=== PATIENT | female | born 1960 | race Caucasian/White ===

== ENCOUNTER → 2020-09-07 13:54 | Outpatient (BNVA) | payer OTHER, SELFPAY | PROVIDERS: PCP Family Medicine; Visit Provider Hospitalist | DX: Z76.89 Persons encountering health services in other specified circumstances (principal) ==

== ENCOUNTER → 2020-12-27 13:26 | Outpatient (BNVA) | payer OTHER, SELFPAY | PROVIDERS: PCP Family Medicine; Visit Provider Hospitalist ==

== ENCOUNTER 2020-12-28 06:25 | Outpatient (REF) | payer OTHER, SELFPAY ==
--- NOTE | ~2020-12-28 | XR_ITS ---
EXAMINATION: XR CHEST CLINICAL INFORMATION: Severe persistent asthma. COMPARISON: 06/11/2020 TECHNIQUE: 2 views of the chest were obtained. FINDINGS: The cardiomediastinal silhouette is within normal limits. The lungs are well expanded. There is no focal consolidation, edema, or effusion. Stable borderline prominence of the left main pulmonary artery. No pneumothorax. No acute osseous abnormality. XR/XR chest 2V IMPRESSION: No significant interval change. No acute process.
== END 2020-12-28 06:26 | disposition home or self-care (01) ==
LOC: HO.XRAY 06:25
PROVIDERS: PCP Family Medicine; Visit Provider Hospitalist
DX: J45.50 Severe persistent asthma, uncomplicated (principal); J67.9 Hypersensitivity pneumonitis due to unspecified organic dust
CPT/HCPCS: 71046

== ENCOUNTER 2020-12-30 06:12 | Outpatient (REF) | payer OTHER, SELFPAY ==
[2020-12-30 07:37] LABS: MANUAL DIFF FLAG NO
[2020-12-30 07:41] LABS: Basophils Absolute Auto 0.1 X10*3/uL (0.0-0.2); Eosinophils Absolute Auto 0.4 X10*3/uL (0.0-0.4); Eosinophils Percent Auto 8.8 % (0-4); Hematocrit 38.7 % (37-47); Hemoglobin 12.6 g/dl (12.0-16.0); Imm Gran Abs Auto 0.01 X10*3/uL (0.00-0.03); Imm Gran Pct Auto 0.2 % (0.0-0.4); Lymphocytes Percent Auto 40.7 % (20-40); Mean Corpuscular HGB Conc 32.6 g/dl (31.0-35.0); Mean Corpuscular Hemoglobin 29.3 pg (27.0-33.0); Mean Platelet Volume 11.3 fL (9.4-12.3); Monocytes Absolute Auto 0.4 X10*3/uL (0.1-1.2); Monocytes Percent Auto 7.2 % (2-11); Neutrophils Absolute Auto 2.1 X10*3/uL (2.0-8.3); Neutrophils Percent Auto 42.1 % (45-73); Platelet Count 209 X10*3/uL (160-400); Red Cell Distribution Width 12.9 % (11.0-16.0); White Blood Count 4.9 X10*3/uL (4.8-10.8)
[2020-12-30 08:14] LABS: Anion Gap 13 (12-20); Blood Urea Nitrogen 17 mg/dL (9-16); Calcium 9.5 mg/dL (8.4-10.2); Carbon Dioxide 26 mmol/L (22-29); Chloride 108 mmol/L (96-108); Estimated Glomerular Filt Rate > 60; Glucose Random 93 mg/dL (60-115); Potassium 4.5 mmol/L (3.3-5.1); Sodium 142 mmol/L (135-145)
[2020-12-30 08:23] LABS: Erythrocyte Sedimentation Rate 56 MM/HR (0-20)
[2020-12-31 03:46] LABS: SARS COV2 IgG Negative (Negative)
[2020-12-31 11:16] LABS: Immunoglobulin E 22 kU/L (<OR=114)
[2021-01-06 14:01] LABS: Asperg fumigatus Precip Abs NEGATIVE (NEGATIVE); Micropoly faeni Abs NEGATIVE (NEGATIVE); Pigeon serum Abs NEGATIVE (NEGATIVE); Saccharo pora viridis Abs NEGATIVE (NEGATIVE); Thermo candidus Abs NEGATIVE (NEGATIVE); Thermoa vulgaris #1 NEGATIVE (NEGATIVE)
== END 2020-12-30 06:13 | disposition home or self-care (01) ==
LOC: HO.LAB 06:12
PROVIDERS: PCP Family Medicine; Visit Provider Hospitalist
DX: R91.8 Other nonspecific abnormal finding of lung field (principal); J45.50 Severe persistent asthma, uncomplicated; J67.9 Hypersensitivity pneumonitis due to unspecified organic dust; Z01.84 Encounter for antibody response examination
CPT/HCPCS: 36415; 80048; 82785; 85025; 85652; 86331; 86606; 86609; 86769

== ENCOUNTER → 2021-02-07 10:55 | Outpatient (BNVA) | payer OTHER, SELFPAY | PROVIDERS: PCP Family Medicine; Visit Provider Hospitalist ==

== ENCOUNTER 2021-02-11 08:56 | Outpatient (REF) | payer OTHER, SELFPAY | END 2021-02-11 08:57 | disposition home or self-care (01) | LOC: HO.MDS 08:56 | PROVIDERS: PCP Family Medicine; Visit Provider Hospitalist | DX: J45.50 Severe persistent asthma, uncomplicated (principal) | CPT/HCPCS: 96372; J0517 ==

== ENCOUNTER 2021-03-11 09:26 | Outpatient (REF) | payer OTHER, SELFPAY | END 2021-03-11 09:27 | disposition home or self-care (01) | LOC: HO.MDS 09:26 | PROVIDERS: PCP Family Medicine; Visit Provider Hospitalist | DX: J45.50 Severe persistent asthma, uncomplicated (principal) | CPT/HCPCS: 96372; J0517 ==

== ENCOUNTER → 2021-04-07 10:35 | Outpatient (BNVA) | payer OTHER, SELFPAY | PROVIDERS: PCP Family Medicine; Visit Provider Hospitalist ==

== ENCOUNTER 2021-04-08 08:43 | Outpatient (REF) | payer OTHER, SELFPAY | END 2021-04-08 08:44 | disposition home or self-care (01) | LOC: HO.MDS 08:43 | PROVIDERS: PCP Family Medicine; Visit Provider Hospitalist | DX: J45.50 Severe persistent asthma, uncomplicated (principal) | CPT/HCPCS: 96372; J0517 ==

== ENCOUNTER 2021-05-06 08:04 | Outpatient (REF) | payer OTHER, SELFPAY | END 2021-05-06 08:05 | disposition home or self-care (01) | LOC: HO.MDS 08:04 | PROVIDERS: PCP Family Medicine; Visit Provider Hospitalist | DX: J45.50 Severe persistent asthma, uncomplicated (principal) | CPT/HCPCS: 96372; J0517 ==

== ENCOUNTER 2021-07-01 08:35 | Outpatient (REF) | payer OTHER, SELFPAY | END 2021-07-01 08:36 | disposition home or self-care (01) | LOC: HO.MDS 08:35 | PROVIDERS: PCP Family Medicine; Visit Provider Hospitalist | DX: J45.50 Severe persistent asthma, uncomplicated (principal) | CPT/HCPCS: 96372; J0517 ==

== ENCOUNTER → 2021-08-02 12:50 | Outpatient (BNVA) | payer OTHER, SELFPAY | PROVIDERS: PCP Family Medicine; Visit Provider Hospitalist | DX: J67.9 Hypersensitivity pneumonitis due to unspecified organic dust (principal); J45.50 Severe persistent asthma, uncomplicated; J45.51 Severe persistent asthma with (acute) exacerbation | CPT/HCPCS: J2930 ==

== ENCOUNTER 2021-08-26 08:00 | Outpatient (REF) | payer OTHER, SELFPAY | END 2021-08-26 08:01 | disposition home or self-care (01) | LOC: HO.MDS 08:00 | PROVIDERS: PCP Family Medicine; Visit Provider Hospitalist | DX: J45.50 Severe persistent asthma, uncomplicated (principal) | CPT/HCPCS: 96372; J0517 ==

== ENCOUNTER 2021-09-23 07:59 | Outpatient (REF) | payer OTHER, SELFPAY | END 2021-09-23 08:00 | disposition home or self-care (01) | LOC: HO.MDS 07:59 | PROVIDERS: PCP Family Medicine; Visit Provider Hospitalist | DX: J45.50 Severe persistent asthma, uncomplicated (principal); G35 Multiple sclerosis | CPT/HCPCS: 96372; J0517 ==

== ENCOUNTER → 2021-10-06 11:05 | Outpatient (BNVA) | payer OTHER, SELFPAY | PROVIDERS: PCP Family Medicine; Visit Provider Hospitalist | DX: J45.50 Severe persistent asthma, uncomplicated (principal); J44.9 Chronic obstructive pulmonary disease, unspecified; J67.9 Hypersensitivity pneumonitis due to unspecified organic dust | CPT/HCPCS: 90471; 90686 ==

== ENCOUNTER 2022-10-03 15:07 | Outpatient (REF) | payer OTHER, SELFPAY ==
[2022-10-03 15:24] LABS: MANUAL DIFF FLAG NO
[2022-10-03 16:04] LABS: Basophils Absolute Auto 0.1 X10*3/uL (0.0-0.2); Basophils Percent Auto 1.2 % (0-2); Eosinophils Absolute Auto 0.3 X10*3/uL (0.0-0.4); Eosinophils Percent Auto 5.7 % (0-4); Hematocrit 38.9 % (37.0-47.0); Hemoglobin 12.6 g/dl (12.0-16.0); Imm Gran Abs Auto 0.01 X10*3/uL (0.00-0.03); Imm Gran Pct Auto 0.2 % (0.0-0.4); Lymphocytes Absolute Auto 2.2 X10*3/uL (1.2-4.9); Lymphocytes Percent Auto 44.2 % (20-40); Mean Corpuscular HGB Conc 32.4 g/dl (31.0-35.0); Mean Corpuscular Hemoglobin 28.6 pg (27.0-33.0); Mean Corpuscular Volume 88.4 fL (80.0-98.0); Monocytes Absolute Auto 0.4 X10*3/uL (0.1-1.2); Monocytes Percent Auto 8.5 % (2-11); Neutrophils Percent Auto 40.2 % (45-73); Platelet Count 265 X10*3/uL (160-400); White Blood Count 5.1 X10*3/uL (4.8-10.8)
[2022-10-03 16:27] LABS: Alanine Aminotransferase 14 U/L (0-31); Albumin Level 4.3 g/dL (3.5-5.0); Alkaline Phosphatase 117 U/L (39-117); Anion Gap 12 (12-20); Aspartate Amino Transferase 20 U/L (5-31); Bilirubin Total 0.5 mg/dL (0.0-1.0); Blood Urea Nitrogen 16 mg/dL (9-16); Carbon Dioxide 27 mmol/L (22-29); Chloride 104 mmol/L (96-108); Estimated Glomerular Filt Rate > 60; Glucose Random 94 mg/dL (60-115); Potassium 4.4 mmol/L (3.3-5.1); Sodium 139 mmol/L (135-145); Total Protein 7.6 g/dL (6.5-8.0)
[2022-10-05 18:54] LABS: Immunoglobulin E 19 kU/L (<OR=114)
[2022-10-14 15:43] LABS: Asperg fumigatus Precip Abs NEGATIVE (NEGATIVE); Micropoly faeni Abs NEGATIVE (NEGATIVE); Pigeon serum Abs NEGATIVE (NEGATIVE); Saccharo pora viridis Abs NEGATIVE (NEGATIVE); Thermo candidus Abs NEGATIVE (NEGATIVE); Thermoa vulgaris #1 NEGATIVE (NEGATIVE)
== END 2022-10-03 15:08 | disposition home or self-care (01) ==
LOC: HO.LAB 15:07
PROVIDERS: Absent Provider Hospitalist; Visit Provider Nurse Practitioner Family
DX: J45.50 Severe persistent asthma, uncomplicated (principal); J67.9 Hypersensitivity pneumonitis due to unspecified organic dust; R91.8 Other nonspecific abnormal finding of lung field; G35 Multiple sclerosis
CPT/HCPCS: 36415; 80053; 82785; 85025; 86331; 86606; 86609; U0005

== ENCOUNTER → 2023-04-03 08:26 | Outpatient (BNVA) | payer OTHER, SELFPAY | PROVIDERS: Visit Provider Nurse Practitioner Family ==

== ENCOUNTER 2024-01-15 13:32 | Outpatient (AMB) | payer OTHER, SELFPAY ==
--- NOTE | 2024-01-15 13:32 | A.OFFVIS_ITS ---
Intake Intake Visit Reasons: follow up-Conf Intake Note: patient presents for follow up. I emailed her about my issues Allergies amoxicillin Allergy (Severe, Verified 01/15/24 13:33) Sick azithromycin [Zithromax] Allergy (Severe, Verified 01/15/24 13:33) Sick ciprofloxacin Allergy (Severe, Verified 01/15/24 13:33) Sick levofloxacin Allergy (Severe, Verified 01/15/24 13:33) Sickness Sulfa (Sulfonamide Antibiotics) Allergy (Severe, Verified 01/15/24 13:33) sickness Erythromycin Allergy (Severe, Uncoded 01/15/24 13:33) sickness PCN Allergy (Severe, Uncoded 01/15/24 13:33) sickness Antibiotics Allergy (Intermediate, Uncoded 01/15/24 13:33) sickness Medication List - Last Reconciled 01/15/24 by MAGY Zhang albuterol sulfate 90 mcg/actuation (ProAir RespiClick) 2 inhalations inhalation Q6H PRN 90 days albuterol sulfate 90 mcg/actuation 2 inhalations inhalation Q6H PRN 90 days budesonide 0.5 mg (2 mL) inhalation BID 30 days cholecalciferol (vitamin D3) 125 mcg PO DAILY doxycycline hyclate 100 mg PO BID 10 days doxycycline hyclate 100 mg PO BID 10 days formoterol fumarate (Perforomist) 20 mcg (2 mL) inhalation BID 30 days ipratropium bromide 2 sprays intranasal TID 90 days ipratropium-albuterol 20-100 mcg/actuation (Combivent Respimat) 1 puff inhalation Q6H 30 days methylphenidate HCl 5 mg PO BID 30 days modafinil 100 mg PO QAM 30 days multivitamin 1 tab PO DAILY prednisone PO daily; Take 2 tabs daily x 5 days, then 1 tablet daily x 5 days 10 days prednisone PO daily; Take 2 tabs daily x 5 days, then 1 tablet daily x 5 days 10 days teriflunomide (Aubagio) 14 mg PO DAILY 90 days HPI HPI Comments History of Present Illness Details 63-yr-old female presents for f/u televi rodolfo visit via [employer]. Pt denies any significant interval medical changes. She feels like she becomes more tired more often. She does take naps. Her left hand can tremor briefly at times- only 1st thing upon waking up. Occasionally may have LUE numbness and tingling- but not when the hand is shaking. She LLE can still have feel like the knee is hinged. She is wearing her LLE AFO, as w/o it her left leg drags. Denies falls. Compliant w/ Aubagio- states tolerating well. [facility] Medical History Asthma Asthma-COPD overlap syndrome Hypersensitivity pneumonitis Severe persistent asthma in adult without complication Family History Father Cancer HTN (hypertension) Mother Stroke Social History Alcohol intake: never Patient Tobacco Use Status: Never used Tobacco Physical Exam Const General: cooperative and no acute distress Orientation/consciousness: patient oriented x3 Resp Effort & Inspection: normal respiratory effort and able to speak in complete sentences Neuro General: patient oriented x3 Cognition (Neuro): normal cognition Psych Appearance: grossly normal Mental Status: mental status grossly normal Speech and movement: Clear speech present Affect: normal affect Attitude: cooperative Assessment & Plan Assessment & Plan (1) Multiple sclerosis: Code(s): G35 - Multiple sclerosis (2) Left foot drop: Code(s): M21.372 - Foot drop, left foot (3) Fatigue: Code(s): R53.83 - Other fatigue Plan Nov 2022- brain MRI- no interval changes. Pt is due for her annual f/u brain MRI w/wo to assess for any subclinical interval progression of demyelinating white matter lesions while on her current DMT regimen- Aubagio. Continue Aubagio 14mg po daily- pt is now obtaining through [facility]. Stopped Modafinil 100mg qam- ineffective. Pt declines trying alternate wake promoting agent. May take brief early day naps. Try to increase physical activity. Check CBC w/ diff and CMP 1 week prior to f/u. f/u in 3-4 months or sooner prn. Telehealth Telehealth Location of provider rendering services: practice address Location of patient: other ([place]) Patient Identification confirmed using: Name, : Yes Telehealth method: video Patient verbally consented to treatment: Yes Patient verbally consented to billing insurance company: Yes Patient informed of any privacy concerns related to visit: Yes Minutes spent on Phone/Video with Pt.: 25 Coding Level of Care Code Tele Est Pt Level 4 (42299) Diagnoses Multiple sclerosis G35 Left foot drop M21.372 Fatigue R53.83
== END 2024-01-15 14:49 | disposition home or self-care (01) ==
LOC: HO.HSMS 13:32
PROVIDERS: Visit Provider Nurse Practitioner Family
DX: G35 Multiple sclerosis (principal); M21.372 Foot drop, left foot; R53.83 Other fatigue
CPT/HCPCS: 99214

== ENCOUNTER → 2024-01-15 13:32 | Outpatient (BNVA) | payer OTHER, SELFPAY | PROVIDERS: Visit Provider Nurse Practitioner Family ==

== ENCOUNTER 2024-04-11 07:29 | Outpatient (AMB) | payer OTHER, SELFPAY ==
--- NOTE | 2024-04-11 07:38 | MHC.OFFVIS ---
Vital Signs 04/11/24 07:39 Height 5 ft 6 in Weight 150 lb BMI 24.2 BP 124/76 Blood Pressure Location Rt brachial Position Sitting Pulse 102 H Pulse Source Pulse Oximeter Pulse Oximetry (%) 98 Oxygen Delivery Method Room Air Intake Visit Reasons: Follow up-CONF Intake Note: Patient presents for follow up. patient following up has a concerns written down to discuss with provider. Allergies amoxicillin Allergy (Severe, Verified 04/11/24 18:43) Sick azithromycin [Zithromax] Allergy (Severe, Verified 04/11/24 18:43) Sick ciprofloxacin Allergy (Severe, Verified 04/11/24 18:43) Sick levofloxacin Allergy (Severe, Verified 04/11/24 18:43) Sickness Sulfa (Sulfonamide Antibiotics) Allergy (Severe, Verified 04/11/24 18:43) sickness Erythromycin Allergy (Severe, Uncoded 04/11/24 18:43) sickness PCN Allergy (Severe, Uncoded 04/11/24 18:43) sickness Antibiotics Allergy (Intermediate, Uncoded 04/11/24 18:43) sickness Medication List - Last Reconciled 04/11/24 by MAGY Zhang albuterol sulfate 90 mcg/actuation (ProAir RespiClick) 2 inhalations inhalation Q6H PRN 90 days albuterol sulfate 90 mcg/actuation 2 inhalations inhalation Q6H PRN 90 days budesonide 0.5 mg (2 mL) inhalation BID 30 days cholecalciferol (vitamin D3) 125 mcg PO DAILY doxycycline hyclate 100 mg PO BID 10 days doxycycline hyclate 100 mg PO BID 10 days formoterol fumarate (Perforomist) 20 mcg (2 mL) inhalation BID 30 days ipratropium bromide 2 sprays intranasal TID 90 days ipratropium-albuterol 20-100 mcg/actuation (Combivent Respimat) 1 puff inhalation Q6H 30 days methylphenidate HCl 5 mg PO BID 30 days modafinil 100 mg PO QAM 30 days multivitamin 1 tab PO DAILY prednisone PO daily; Take 2 tabs daily x 5 days, then 1 tablet daily x 5 days 10 days prednisone PO daily; Take 2 tabs daily x 5 days, then 1 tablet daily x 5 days 10 days teriflunomide (Aubagio) 14 mg PO DAILY 90 days HPI Comments Details: 63-yr-old female presents for f/u visit of MS. She states her resp s/s have not been well-controlled, recurrent infections, cough, SOB. Has f/u pulmonary consult later today. Pt denies any signs of MS relapse. She is complaint w/ Aubagio- now receives through [facility]. She reports her left hand is weaker- more prone to dropping things. Her LUE shakes, but tremor does not interfere with most activities. Her LLE has been colder over the past 6 months, and then has become slightly discolored in the last month, and now in the last few days are a bit more swollen- even in the morning but worse by evening. She did drop her Ipad on the top of her left foot on 11/23/23, and still has a trace of a bruise on the foot. She is still prone to fatigue. Her tells her when she is tired, her left face droops but she does not see this No falls. No bladder changes. She wonders about trying Bioness tx for her left foot drop and the [place]. [facility] Medical History Asthma-COPD overlap syndrome Asthma Hypersensitivity pneumonitis Severe persistent asthma in adult without complication Family History Father Cancer HTN (hypertension) Mother Stroke Social History Alcohol intake: never Patient Tobacco Use Status: Never used Tobacco Smoked in Last 30 Days: No Use of substances other than those prescribed or required for medical reasons: No Advance Directives: No Advance Directives Information Provided: Yes Physical Exam Vital Signs: Last Vital Signs Pulse 102 H 04/11/24 07:39 BP 124/76 04/11/24 07:39 Pulse Ox 98 04/11/24 07:39 Oxygen Delivery Method Room Air 04/11/24 07:39 BMI result Body Mass Index 24.2 Const General: cooperative and no acute distress Orientation/consciousness: patient oriented x3 HEENT Head: Yes normocephalic Resp Effort & Inspection: normal respiratory effort and able to speak in complete sentences Neuro Other: RUE MS 5-/5 RLE MS: 4+-5-/5 RUE and RLE MS 5/5 No visible tremor Left foot drop Gait- stands ok, left high step w/ LLE AFO in place. General: patient oriented x3 and CN's II-XI intact bilaterally Cognition (Neuro): normal cognition Deep tendon reflexes (DTR's): Right triceps reflex intensity grade: 2+, Left triceps reflex intensity grade: 2+, Rt Biceps (C5, C6): 2+, Left biceps reflex intensity grade: 2+, Right brachioradialis reflex intensity grade: 2+, Left brachioradialis reflex intensity grade: 2+, Right patellar reflex intensity grade: 2+ and Left patellar reflex intensity grade: 2+ Extrem Other: LLE- slightly cool to touch, diffuse slight discoloration, swelling- compared to right. LLE- sensation intact, PP + Psych Appearance: grossly normal Mental Status: mental status grossly normal Speech and movement: Normal speech and movement present Affect: normal affect Attitude: cooperative Thought process: Normal thought process present Thought content: Normal thought content present Insight: Good insight present (Psych) Judgement: Good judgement present (Psych) Assessment & Plan Assessment & Plan (1) Multiple sclerosis: Code(s): G35 - Multiple sclerosis Category: Medical (2) LUE weakness: Code(s): R29.898 - Other symptoms and signs involving the musculoskeletal system Category: Medical (3) Tremor: Code(s): R25.1 - Tremor, unspecified Category: Medical Plan For newer onset, and now worsening LLE coolness, discoloration, and now swelling- will check D-dimer and attempt to arrange for vascular eval. Pt has plans to fly to [place] on Sunday. Pt is due for?annual f/u brain and c-spine MRI w/wo to assess for any subclinical interval progression of demyelinating white matter lesions while on her current DMT regimen- Aubagio. Continue Aubagio 14mg po daily- pt is now obtaining through [facility]. Check labs- CBC, CMP, as well as lipids, HgA1C, and lab work-up for fatigue. Pt does not currently have PCP- will check lipids, HgA1C May take brief early day naps. Previous trials- Modafinil 100mg qam- ineffective for fatigue f/u upon reveiw of above and in 6 months or sooner prn. Addendum- Rec'd call from lab on 04/11/24 w/ results of positive D-dimer 529 H. Pt advised to go [place] [facility] for further evaluation for possible pulmonary or venous thrombosis. She should avoid travel until work-up complete. Pt agrees to go to ER. Orders: Orders Vitamin D 25-OH (D2 and D3) 04/11/24 G35 - Multiple sclerosis, M62.838 - Other muscle spasm, M79.89 - Other specified soft tissue disorders, R53.83 - Other fatigue Vitamin B12 and Folate 04/11/24 G35 - Multiple sclerosis, M62.838 - Other muscle spasm, M79.89 - Other specified soft tissue disorders, R53.83 - Other fatigue Ferritin 04/11/24 G35 - Multiple sclerosis, M62.838 - Other muscle spasm, M79.89 - Other specified soft tissue disorders, R53.83 - Other fatigue LASHAWN Reflex Titer and Pattern 04/11/24 G35 - Multiple sclerosis, M62.838 - Other muscle spasm, M79.89 - Other specified soft tissue disorders, R53.83 - Other fatigue MR head/brain wo/w con 04/11/24 G35 - Multiple sclerosis, M21.372 - Foot drop, left foot, R25.1 - Tremor, unspecified, R29.898 - Other symptoms and signs involving the musculoskeletal system Complete Blood Count Auto Diff 04/11/24 G35 - Multiple sclerosis, R53.83 - Other fatigue Comprehensive Met. Panel 04/11/24 G35 - Multiple sclerosis, R53.83 - Other fatigue Lipid Panel with Reflex 04/11/24 G35 - Multiple sclerosis, M62.838 - Other muscle spasm, M79.89 - Other specified soft tissue disorders, R53.83 - Other fatigue D Dimer High Sensitivity 04/11/24 G35 - Multiple sclerosis, M62.838 - Other muscle spasm, M79.89 - Other specified soft tissue disorders, R53.83 - Other fatigue Hemoglobin A1c 04/11/24 G35 - Multiple sclerosis, M62.838 - Other muscle spasm, M79.89 - Other specified soft tissue disorders, R53.83 - Other fatigue Homocysteine 04/11/24 G35 - Multiple sclerosis, M62.838 - Other muscle spasm, M79.89 - Other specified soft tissue disorders, R53.83 - Other fatigue Methylmalonic Acid 04/11/24 G35 - Multiple sclerosis, M62.838 - Other muscle spasm, M79.89 - Other specified soft tissue disorders, R53.83 - Other fatigue IRON PROFILE 04/11/24 G35 - Multiple sclerosis, M62.838 - Other muscle spasm, M79.89 - Other specified soft tissue disorders, R53.83 - Other fatigue TSH reflex Free T4 04/11/24 G35 - Multiple sclerosis, M62.838 - Other muscle spasm, M79.89 - Other specified soft tissue disorders, R53.83 - Other fatigue Rheumatoid Factor 04/11/24 G35 - Multiple sclerosis, M62.838 - Other muscle spasm, M79.89 - Other specified soft tissue disorders, R53.83 - Other fatigue MR cervical spine wo/w con 04/11/24 G35 - Multiple sclerosis, M21.372 - Foot drop, left foot, R25.1 - Tremor, unspecified, R29.898 - Other symptoms and signs involving the musculoskeletal system Coding Level of Care Code Est Pt Level 4 (49264) Diagnoses Multiple sclerosis G35 LUE weakness R29.898 Tremor R25.1
[2024-04-11 07:39] VITALS: BP 124/76; PULSE 102; O2SAT 98; BMI 24.2
== END 2024-04-11 08:33 | disposition home or self-care (01) ==
PROVIDERS: Visit Provider Nurse Practitioner Family
DX: G35 Multiple sclerosis (principal); R29.898 Other symptoms and signs involving the musculoskeletal system; R25.1 Tremor, unspecified
CPT/HCPCS: 99214

== ENCOUNTER 2024-04-11 07:29 | Outpatient (REF) | payer OTHER, SELFPAY ==
[2024-04-11 14:54] LABS: MANUAL DIFF FLAG NO
[2024-04-11 15:09] LABS: Basophils Absolute Auto 0.1 X10*3/uL (0.0-0.2); Basophils Percent Auto 1.8 % (0-2); Eosinophils Absolute Auto 0.8 X10*3/uL (0.0-0.4); Eosinophils Percent Auto 15.1 % (0-4); Estimated Average Glucose 111 mg/dL; Hematocrit 41.9 % (37.0-47.0); Hemoglobin A1c % 5.5 % (<6.0); Imm Gran Abs Auto 0.01 X10*3/uL (0.00-0.03); Imm Gran Pct Auto 0.2 % (0.0-0.4); Lymphocytes Absolute Auto 1.6 X10*3/uL (1.2-4.9); Lymphocytes Percent Auto 31.7 % (20-40); Mean Corpuscular HGB Conc 33.4 g/dl (31.0-35.0); Mean Corpuscular Hemoglobin 29.2 pg (27.0-33.0); Mean Corpuscular Volume 87.5 fL (80.0-98.0); Mean Platelet Volume 10.9 fL (9.4-12.3); Monocytes Absolute Auto 0.5 X10*3/uL (0.1-1.2); Monocytes Percent Auto 9.4 % (2-11); Neutrophils Absolute Auto 2.1 x10*3/uL (2.0-8.3); Neutrophils Percent Auto 41.8 % (45-73); Platelet Count 213 X10*3/uL (160-400); Red Blood Count 4.79 X10*6/uL (4.20-5.50); Red Cell Distribution Width 13.6 % (11.0-16.0)
[2024-04-11 15:20] LABS: D Dimer High Sensitivity 529 NG/ML
[2024-04-11 15:36] LABS: Alanine Aminotransferase 13 U/L (0-31); Albumin Level 4.3 g/dL (3.5-5.0); Alkaline Phosphatase 110 U/L (39-117); Anion Gap 12 (12-20); Aspartate Amino Transferase 20 U/L (5-31); Bilirubin Total 0.7 mg/dL (0.0-1.0); Blood Urea Nitrogen 18 mg/dL (9-16); Calcium 10.2 mg/dL (8.4-10.2); Carbon Dioxide 26 mmol/L (22-29); Chloride 109 mmol/L (96-108); Cholesterol 189 mg/dL (<200); Estimated Glomerular Filt Rate > 60; Glucose Random 109 mg/dL (60-115); HDL Cholesterol 58 mg/dL (>40); Iron 88 mcg/dL (30-160); LDL Cholesterol Calculated 111 mg/dL (<100); Percent Iron Saturation 28 % (15-50); Potassium 3.9 mmol/L (3.3-5.1); Sodium 143 mmol/L (135-145); Total Iron Binding Capacity 317 mcg/dL (228-428); Triglycerides 100 mg/dL (<150); Unsaturated Iron Binding 229 ug/dL
[2024-04-11 15:52] LABS: Ferritin 368 ng/mL (10-250); TSH reflex Free T4 0.96 uIU/mL (0.32-4.0)
[2024-04-11 15:54] LABS: Rheumatoid Factor < 13.0 IU/mL (<15.0)
[2024-04-11 16:00] LABS: Folate 8.4 ng/mL (> or = 4.0); Vitamin B12 636 pg/mL (200-900)
[2024-04-11 18:44] LABS: Reflex LDLD? No
[2024-04-13 15:13] LABS: Anti Nuclear Antibody Screen NEGATIVE (NEGATIVE)
[2024-04-14 17:34] LABS: Homocysteine 12.4 umol/L (<10.4)
[2024-04-15 13:12] LABS: Vitamin D 25-OH, D2 <4 ng/mL; Vitamin D 25-OH, D3 75 ng/mL; Vitamin D 25-OH, Total 75 ng/mL (30-100)
[2024-04-16 09:24] LABS: Methylmalonic Acid 118 nmol/L (87-318)
== END 2024-04-11 07:30 | disposition home or self-care (01) ==
LOC: HO.LAB 07:29
PROVIDERS: Visit Provider Nurse Practitioner Family
DX: G35 Multiple sclerosis (principal); R53.83 Other fatigue; M79.89 Other specified soft tissue disorders; M62.838 Other muscle spasm; Z13.1 Encounter for screening for diabetes mellitus
CPT/HCPCS: 36415; 80053; 80061; 82306; 82607; 82728; 82746; 83036; 83090; 83540; 83921; 84443; 85025; 85379; 86038; 86431; 94640; 96372

== ENCOUNTER 2024-04-11 13:18 | Outpatient (AMB) | payer OTHER, SELFPAY ==
--- NOTE | 2024-04-11 13:23 | MHC.OFFVIS ---
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 Allergies amoxicillin Allergy (Severe, Verified 04/11/24 18:43) Sick azithromycin [Zithromax] Allergy (Severe, Verified 04/11/24 18:43) Sick ciprofloxacin Allergy (Severe, Verified 04/11/24 18:43) Sick levofloxacin Allergy (Severe, Verified 04/11/24 18:43) Sickness Sulfa (Sulfonamide Antibiotics) Allergy (Severe, Verified 04/11/24 18:43) sickness Erythromycin Allergy (Severe, Uncoded 04/11/24 18:43) sickness PCN Allergy (Severe, Uncoded 04/11/24 18:43) sickness Antibiotics Allergy (Intermediate, Uncoded 04/11/24 18:43) sickness HPI Comments Details: The patient is a 61-year-old woman with severe persistent asthma. She also was diagnosed with tracheobronchomalacia via bronchoscopy. Currently she has been doing well on the current respiratory regimen which includes Perforomist and budesonide twice a day. She still uses her rescue inhaler more than twice a week. She uses the ProAir respiclick device. However, her insurance would not cover. She has tried the other HFA formulations and does not appear to be effective to slight although her respiratory inhalers in the past were not effective thickening of her asthma. She has not had any recent flares and has been doing well. She continues getting her allergy shots and also taking her allergy medicine. No recent imaging studies to review. 04/11/2024 the patient is here for a pulmonary follow-up visit. The patient had been struggling with her asthma. She was in [place] and she visited the ER multiple times. She required frequent prednisone. The patient has been running out of her medications. I will make sure to send her all the medications to the pharmacy. She does have significant wheezing work of breathing this time will go ahead and give her 2 DuoNeb treatments and also Solu-Medrol intramuscularly today. Then after that she can complete her a prednisone taper. The patient will have all her medications at the pharmacy. The patient also responded very well to biologics in the past, Fasenra. Although difficult at this time because of her travels. She is also developing some lower extremity edema left more than right. She did have blood work done by her primary care provider. They did request a D-dimer. If D-dimer is elevated than they will further evaluate for blood clots both in the extremities and also likely in the pulmonary system. Therefore, she will have blood work after the visit today. After her nebulizer treatments she did send lot better. [facility] Medical History Asthma-COPD overlap syndrome Asthma Hypersensitivity pneumonitis Severe persistent asthma in adult without complication Family History Father Cancer HTN (hypertension) Mother Stroke Social History Alcohol intake: never Patient Tobacco Use Status: Never used Tobacco Smoked in Last 30 Days: No Use of substances other than those prescribed or required for medical reasons: No Advance Directives: No Advance Directives Information Provided: Yes Review of Systems Const Denies night sweats ENT Denies change in voice, Denies lip swelling, Denies mouth pain, Reports nasal congestion, Reports nasal discharge and Denies tongue swelling Card Denies chest pain, Reports dyspnea and Reports dyspnea on exertion Resp Reports chest congestion, Reports cough, Reports dyspnea, Reports dyspnea on exertion and Reports wheezing GI Denies abdominal pain Musc Denies no additional complaints Neuro Denies Neuro-related abnormal movements Psych Denies no additional complaints Dmitriy/Lymph Denies easy bleeding and Denies lymphadenopathy Aller/Immun Denies lip swelling, Denies tongue swelling and Reports wheezing Physical Exam Vital Signs: Last Vital Signs Pulse 90 04/11/24 13:24 Pulse Ox 84 L 04/11/24 13:24 Oxygen Delivery Method Room Air 04/11/24 13:24 BMI result Body Mass Index 23.9 Const General: alert Neck Neck: Yes normal visual inspection, Yes full ROM and Yes no lymphadenopathy Chest Chest palpation & inspection: normal inspection of the chest Resp Effort & Inspection: prolonged expiratory phase Auscultation: no rhonchi, wheezes and diminished lung sounds Cardio Rate: regular rate Rhythm: regular rhythm Heart sounds: S1 normal heart sound present and S2 normal heart sound present GI Palpation (GI): Soft to palpation and nontender Auscultation: normal bowel sounds Skin General skin exam: rashes and/or lesions noted Office Procedures Nebulizer Treatment Nebulizer Treatment [id number] RX initial, or Nebulizer Subsequent Treatment Office Meds methylprednisolone sod suc(PF) 125 mg/2 mL solution for injection Performing Provider: Bar Mason MD Performing [place] [facility] Administered by: Corrina Payton LPN on 04/11/24 14:09 Dose Route Admin Location Dispensed Lot Number Expiration Date ND Check Processor 125 mg IM R buttock 2 ea [id number] 07/05/26 0953-0985-69 [employer] [place] [employer] Comments: 125mg/2ml given in the R buttock ipratropium 0.5 mg-albuterol 3 mg (2.5 mg base)/3 mL nebulization soln Performing Provider: Bar Mason MD Performing Location: [facility] Administered by: Corrina Payton LPN on 04/11/24 14:09 Dose Route Admin Location Dispensed Lot Number Expiration Date ND Check Processor 3 mL inhalation 3 mL [id number] 03/04/26 38920-646-06 [employer] Assessment & Plan Assessment & Plan (1) Hypersensitivity pneumonitis: Code(s): J67.9 - Hypersensitivity pneumonitis due to unspecified organic dust Category: Medical (2) Asthma-COPD overlap syndrome: Code(s): J44.9 - Chronic obstructive pulmonary disease, unspecified Category: Medical (3) Asthma: Code(s): J45.909 - Unspecified asthma, uncomplicated Category: Medical Qualifiers: Asthma severity: severe Asthma persistence: persistent Asthma complication type: with acute exacerbation Qualified Code(s): J45.51 - Severe persistent asthma with (acute) exacerbation Plan solumedrol IM x 1 start prednisone taper Consider restart Fasenra [id number] self injections Continue BUdesonide BID Continue Performist JAELYN as needed F/U 3-4 months Orders: Orders AMB Methylprednisolone Sod Succ Injection 04/11/24 J44.9 - Chronic obstructive pulmonary disease, unspecified AMB Nebulizer Treatment 04/11/24 J44.9 - Chronic obstructive pulmonary disease, unspecified Medications: New montelukast (Singulair) 10 mg PO BEDTIME 90 tabs 3RF 90 days J45.909 - Unspecified asthma, uncomplicated prednisone PO daily; Take 6 tabs daily x 3 days, then 5 tabs x 3 days, then 4 tabs x 3 days, then 3 tabs x 3 days, then 2 tabs daily x 3 days, then 1 tab x 3 days to complete. 63 tabs 0RF 18 days Refilled albuterol sulfate 90 mcg/actuation (ProAir RespiClick) 2 inhalations inhalation Q6H PRN 3 ea 3RF shortness of breath or wheezing 90 days budesonide 0.5 mg (2 mL) inhalation BID 120 mL 11RF 30 days formoterol fumarate (Perforomist) 20 mcg (2 mL) inhalation BID 120 mL 11RF 30 days J44.9 - Chronic obstructive pulmonary disease, unspecified Coding Level of Care Code Est Pt Level 4 (46884) Diagnoses Hypersensitivity pneumonitis J67.9 Asthma-COPD overlap syndrome J44.9 Severe persistent asthma with acute exacerbation J45.51 Asthma severity: severe Asthma persistence: persistent Asthma complication type: with acute exacerbation CPT Codes Nebulizer Treatment - Nebulizer Treatment, initial or subsequent: [id number] RX initial, or Nebulizer Subsequent Treatment ([id number]) Time Spent (min) 17
[2024-04-11 13:24] VITALS: PULSE 90; O2SAT 84; BMI 23.9
== END 2024-04-11 14:14 | disposition home or self-care (01) ==
PROVIDERS: Visit Provider Hospitalist
DX: J44.9 Chronic obstructive pulmonary disease, unspecified (principal)
CPT/HCPCS: 99214

== ENCOUNTER 2024-04-11 18:16 | Emergency (ER) | payer OTHER, SELFPAY ==
--- NOTE | ~2024-04-11 | US_ITS ---
EXAMINATION: US VENOUS ULTRASOUND WITH DOPPLER LOWER EXTREMITY, LEFT CLINICAL INFORMATION: Swelling, discoloration. COMPARISON: None available. TECHNIQUE: Ultrasound of the deep veins is performed from the hip to the calf with compression sonography and color and pulse Doppler assessment. Spectral analysis with color-flow imaging is performed. FINDINGS: There is normal venous compression and respiratory variation and augmented flow. The visualized common femoral vein, superficial femoral vein, profunda femoral vein, popliteal vein, and the trifurcation region shows no evidence of deep venous thrombosis. There is no significant popliteal fossa cyst. If the patient's symptoms persist, followup ultrasound in 5 days 7 days might be of value to exclude proximal propagation from a non-visualized calf vein. US/US venous duplex LE LT IMPRESSION: No DVT demonstrated in the left lower extremity.
--- NOTE | ~2024-04-11 | XR_ITS ---
EXAMINATION: XR CHEST CLINICAL INFORMATION: Shortness of breath. COMPARISON: Chest radiograph 12/28/2020. TECHNIQUE: 2 views of the chest were obtained. FINDINGS: Normal appearance of the cardiomediastinal silhouette. Mild diffuse peribronchial prominence. No consolidation, pleural effusion or pneumothorax. No acute osseous findings. XR/XR chest 2V IMPRESSION: Findings suggesting small airways disease with no consolidation or pleural effusion.
[2024-04-11 18:37] VITALS: BP 145/96; PULSE 93; RESP 18; TEMP 36.3; O2SAT 95; BMI 24.3
--- NOTE | 2024-04-11 18:37 | ED.EXTPRO ---
HPI - Extremity Problem General Chief complaint: Extremity Problem Stated complaint: Dr. shay for ultrasound on L leg and chest Time Seen by Provider: 04/11/24 23:45 Source: patient Mode of arrival: ambulatory Limitations: no limitations History of Present Illness ED Provider: MALA BADILLO Narrative: 63 yo female with PMH of MS, asthma, COPD, left leg swelling for a month now after return from [place] and the leg is cold x 6 months on and off discoloration - she saw her PCP who sent her here after elevated ddimer it is the same leg she wears a brace on. She has chronic dyspnea no new changes. She was sent for DVT rule out. She denies ever seeing a vascular surgeon for this MD Complaint: other (extremity cool, swelling, discoloration) Onset (ago): month(s) (6) Location: left and lower extremity Relieving factors: nothing Exacerbating factors: nothing Associated symptoms: denies other symptoms Context: other (blames on returning from [place]) Related Data Home Medications ?Medication ?Instructions ?Recorded ?Confirmed cholecalciferol (vitamin D3) 125 125 mcg PO DAILY 09/07/20 04/11/24 mcg (5,000 unit) capsule multivitamin 1 tab PO DAILY 09/07/20 04/11/24 nebulizers 04/11/24 Previous Rx's ?Medication ?Instructions ?Recorded albuterol sulfate 90 mcg/actuation 2 inh inhalation Q6H PRN shortness 08/22/21 aerosol inhaler of breath or wheezing 90 days #3 ea ipratropium 20 mcg-albuterol 100 1 puff inhalation Q6H 30 days #4 10/03/22 mcg/actuation mist for inhalation grams (Combivent Respimat) ipratropium bromide 21 mcg (0.03 2 spray intranasal TID 90 days #90 10/05/22 %) nasal spray mL modafinil 100 mg tablet 100 mg PO QAM 30 days #30 tabs 04/03/23 methylphenidate HCl 5 mg tablet 5 mg PO BID 30 days #60 tabs 05/18/23 teriflunomide 14 mg tablet 14 mg PO DAILY 90 days #90 tabs 12/14/23 (Aubagio) albuterol sulfate 90 mcg/actuation 2 inh inhalation Q6H PRN shortness 04/11/24 breath activated powder inhaler of breath or wheezing 90 days #3 ea (ProAir RespiClick) budesonide 0.5 mg/2 mL suspension 0.5 mg (2 mL) inhalation BID 30 04/11/24 for nebulization days #120 mL formoterol fumarate 20 mcg/2 mL 20 mcg (2 mL) inhalation BID 30 04/11/24 solution for nebulization days #120 mL (Perforomist) montelukast 10 mg tablet 10 mg PO BEDTIME 90 days #90 tabs 04/11/24 (Singulair) prednisone 10 mg tablet See Rx Instructions PO DAILY 18 04/11/24 days #63 tabs Allergies Allergy/AdvReac Type Severity Reaction Status Date / Time amoxicillin Allergy Severe Sick Verified 04/11/24 18:43 azithromycin [Zithromax] Allergy Severe Sick Verified 04/11/24 18:43 ciprofloxacin Allergy Severe Sick Verified 04/11/24 18:43 levofloxacin Allergy Severe Sickness Verified 04/11/24 18:43 Sulfa (Sulfonamide Allergy Severe sickness Verified 04/11/24 18:43 Antibiotics) Erythromycin Allergy Severe sickness Uncoded 04/11/24 18:43 PCN Allergy Severe sickness Uncoded 04/11/24 18:43 Antibiotics Allergy Intermediate sickness Uncoded 04/11/24 18:43 Review of Systems Review of Systems: Constitutional : No Fever, No Chills ENT/Mouth : No Ear Pain, No Hoarseness, No sore throat Eyes: No Eye Pain, No Swelling, No Redness, No Foreign Body Cardiovascular : No Chest Pain, pos SOB, pos leg edema Respiratory : No Cough, No Dyspnea Gastrointestinal : No Nausea, No Vomiting, No Diarrhea, No abdominal Pain Genitourinary : No Dysuria, No Hematuria Musculoskeletal : no joint pain, No Myalgias, No Joint Swelling Skin : No Skin lacerations, No rash Neuro : No Weakness, No Numbness, No Loss of Consciousness, No Dizziness, No Headache All other systems reviewed and are negative [facility] Past Medical History Attestation statement: The following information was validated with the patient. Source: old records reviewed Medical History Asthma-COPD overlap syndrome Asthma Hypersensitivity pneumonitis Severe persistent asthma in adult without complication Family History Family History Father Cancer HTN (hypertension) Mother Stroke Social History Social History Alcohol intake: never Patient Tobacco Use Status: Never used Tobacco Physical Exam Vital Signs: Vital Signs: Last Vital Signs Temp 97.4 F 04/12/24 00:00 Pulse 91 04/12/24 00:00 Resp 16 04/12/24 00:00 BP 134/87 04/12/24 00:00 Pulse Ox 98 04/12/24 00:00 O2 Del Method Room Air 04/12/24 00:00 BMI result Body Mass Index 24.3 Appearance: Alert. Oriented X3. No acute distress. Eyes: Pupils equal, round and reactive to light. ENT: Pharynx normal. Neck: Normal inspection. Neck supple. CVS: Normal heart rate and rhythm. Pulses normal. Respiratory: No respiratory distress. Breath sounds normal. Abdomen: Soft and nontender. Skin: Skin warm and dry. Normal skin color. Normal skin turgor. Extremities: 1+ pitting edema around L ankle left leg is much cooler to the touch compared to the right - she has palpable pulses in DP and PT area and there is a flat what she reports chronic bruise on dorsum of foot I do not see petechia or lesions on the toenails and she denies pain. Neuro: Oriented X 3. No motor deficit. No sensory deficit. Course Course Course Narrative: This is an RME performed by Opal Boudreaux CNP: Additional HPI, ROS, PE not included below will be deferred to primary provider. Patient is a 63-year-old female with past medical history of asthma-COPD overlap, multiple sclerosis, left footdrop who presents to the emergency department for evaluation. She was evaluated at Neurology Department today, she had endorse left lower extremity being cool for the past 6 months, discolored over 1 month, and over the past few days has developed swelling. Has history of prior left footdrop. Outpatient labs were obtained, D-dimer was 529, she was advised to come to the emergency department for evaluation in addition to an ultrasound. She also states she has been experiencing shortness of breath particularly over the past week, reports that she received a steroid injection today which did help some, but previously was not getting any relief from her inhalers. Plan: Venous duplex ultrasound left lower extremity, CXR Medical Decision Making Medical Decision Making MDM Narrative: 63 yo female with PMH of MS, asthma, COPD, here with c/o chronic L leg coolness x 6 months on and off discoloration and then now swelling x 1 month sent by PCP after elevated ddimer at this time will need DVT study I offered CTA of chest and further work up but she declined due to wait times she will follow up with PCP I suspect small vessel disease and she plans to follow up with Dr. Hartley no signs of infection Differential Diagnosis Differential Diagnoses: The differential diagnosis associated with the presentation includes DVT, small vessel disease Admission/Observation Consideration of admission/observation: Escalation of care including admission/observation considered patient want to go home and has been waiting Lab Data [facility] Lab Attestation statement: I reviewed the patient's lab results. Labs: Lab Results 04/11/24 Range/Units 18:52 Influenza Type A (PCR) NEGATIVE (Negative) Influenza Type B (PCR) NEGATIVE (Negative) RSV RNA Qual (PCR) NEGATIVE (Negative) SARS-CoV-2 RNA (RT-PCR) NEGATIVE (Negative) Independent Interpretation I performed an independent interpretation of an: Plain X-Ray (normal ) and Ultrasound (no DVT) Radiology Impression Discussion of test interpretation with radiology: I have reviewed the radiologist's reading. Independent Historian Clinical information obtained from an independent historian. History obtained from or confirmed by: Other (family) External Record Review External record reviewed: Office record Discharge Plan Discharge Clinical Impression: Left leg swelling Patient Disposition: Home, Self-Care Instructions: Leg Edema (ED) Additional Instructions: no blood clot seen on ultrasound but you need to follow up with vascular surgery there could be something else going on. you were offered a CT scan for further work up but declined, come back if you change your mind - return for pain, worsening discoloration or any other concerns call Dr. Hartley for appointment Prescriptions: No Action albuterol sulfate 90 mcg/actuation HFA aerosol inhaler 2 inh inhalation Q6H PRN (Reason: shortness of breath or wheezing) 90 Days Qty: 3 3RF ipratropium bromide 21 mcg (0.03 %) spray,non-aerosol 2 spray intranasal TID 90 Days Qty: 90 3RF methylphenidate HCl 5 mg tablet 5 mg PO BID 30 Days Qty: 60 0RF Rx Instructions: Partial Fill upon patient request. Aubagio 14 mg tablet 14 mg PO DAILY 90 Days Qty: 90 3RF cholecalciferol (vitamin D3) 125 mcg (5,000 unit) capsule 125 mcg PO DAILY multivitamin Tablet 1 tab PO DAILY Combivent Respimat 20-100 mcg/actuation mist 1 puff inhalation Q6H 30 Days Qty: 4 11RF modafinil 100 mg tablet 100 mg PO QAM 30 Days Qty: 30 1RF (DME) nebulizers Misc See Rx Instructions .ROUTE Rx Instructions: As directed budesonide 0.5 mg/2 mL suspension for nebulization 0.5 mg inhalation BID 30 Days Qty: 120 11RF ProAir RespiClick 90 mcg/actuation aerosol powdr breath activated 2 inh inhalation Q6H PRN (Reason: shortness of breath or wheezing) 90 Days Qty: 3 3RF formoterol fumarate [Perforomist] 20 mcg/2 mL solution for nebulization 20 mcg inhalation BID 30 Days Qty: 120 11RF montelukast [Singulair] 10 mg tablet 10 mg PO BEDTIME 90 Days Qty: 90 3RF prednisone 10 mg tablet See Rx Instructions PO DAILY 18 Days Qty: 63 0RF Rx Instructions: PO daily; Take 6 tabs daily x 3 days, then 5 tabs x 3 days, then 4 tabs x 3 days, then 3 tabs x 3 days, then 2 tabs daily x 3 days, then 1 tab x 3 days to complete. Referrals: Ihsan Hartley MD [Physician] - Print Language: Lithuanian
[2024-04-11 19:37] LABS: Influenza A PCR NEGATIVE (Negative); Influenza B PCR NEGATIVE (Negative); Resp Syncy Virus RNA Qual PCR NEGATIVE (Negative); SARS COV2 PCR INHOUSE NEGATIVE (Negative)
[2024-04-12] VITALS: BP 134/87; PULSE 91; RESP 16; TEMP 36.3; O2SAT 98
[2024-04-12 00:27] VITALS: BP 134/87; PULSE 91; RESP 16; TEMP 36.3; O2SAT 98
== END 2024-04-12 00:28 | disposition home or self-care (01) ==
PROVIDERS: Nurse Practitioner Family; Emergency Provider Emergency Medicine
DX: R60.0 Localized edema (principal); R06.02 Shortness of breath; Z03.818 Encounter for observation for suspected exposure to other biological agents ruled out
CPT/HCPCS: 0241U; 71046; 93971; 99284; J2919

== ENCOUNTER 2024-05-14 15:51 | Outpatient (REF) | payer OTHER, SELFPAY ==
--- NOTE | ~2024-05-14 | MR_ITS ---
EXAMINATION: MR BRAIN WITHOUT AND WITH CONTRAST MR CERVICAL SPINE WITHOUT AND WITH CONTRAST CLINICAL INFORMATION: Multiple sclerosis. COMPARISON: Brain and cervical spine MRI from 10/18/2021. TECHNIQUE: MRI of the brain and cervical spine was obtained using routine sequences without and with contrast using MS protocol without and following the administration of 6.5 mL of Gadavist intravenous contrast. This included a sagittal T2 FLAIR sequence. FINDINGS: Brain: There are multiple T2/FLAIR hyperintense lesions consistent with an underlying diagnosis of demyelination. This includes lesions within the subcortical, deep white matter, periventricular, callosal, brainstem, and cerebellar distributions. New Lesions: None. Enhancing Lesions: None. Restricted Diffusion: None. T1 Black Holes: Approximately 10. Volume Loss: Mild. Additional Findings: No evidence of edema or expansion of the optic nerves. No focal restricted diffusion is seen to suggest acute or subacute cerebral ischemia. No intracranial mass, intra-axial blood products, midline shift, or extra-axial collection is demonstrated. The ventricles and sulcal spaces appear normal. Normal arterial and venous vascular flow voids are present. No signal abnormalities within the superior sagittal or transverse sinuses. Mild mucosal thickening of the paranasal sinuses. No signal abnormalities within the mastoids. Cervical Spine: Minimal degenerative stepwise retrolisthesis of C2-C6. Otherwise, normal anatomic alignment. Multilevel mild degenerative disc disease. Associated mild Discogenic endplate changes. No suspicious marrow edema. The vertebral body heights are well-maintained. Stable minimal T2 hyperintensity within the cervical spinal cord at the levels of C2-C3 and C3-C4. No demonstrated new spinal cord signal abnormalities. No abnormal contrast enhancement. Limited evaluation of the soft tissues of the neck without demonstrated abnormalities. The flow voids of the major cervical vessels are maintained. Normal appearance of the cervicomedullary junction and visualized posterior fossa. SPINAL LEVELS: C2-C3: Mild disc-osteophyte complex. There is no uncovertebral joint arthropathy. There is mild bilateral facet joint arthropathy. There is no neural foraminal stenosis. There is no spinal canal stenosis. C3-C4: Mild disc-osteophyte complex. There is mild bilateral uncovertebral joint arthropathy. There is moderate bilateral facet joint arthropathy. There is mild bilateral neural foraminal stenosis. There is no spinal canal stenosis. C4-C5: Minimal disc-osteophyte complex. There is mild bilateral uncovertebral joint arthropathy. There is moderate right and mild left facet joint arthropathy. There is mild right and no left neural foraminal stenosis. There is no spinal canal stenosis. C5-C6: Moderate disc-osteophyte complex. There is moderate bilateral uncovertebral joint arthropathy. There is moderate bilateral facet joint arthropathy. There is mild to moderate bilateral neural foraminal stenosis. There is no spinal canal stenosis. C6-C7: Minimal disc-osteophyte complex. There is moderate left and mild right uncovertebral joint arthropathy. There is mild bilateral facet joint arthropathy. There is moderate left and mild right neural foraminal stenosis. There is no spinal canal stenosis. C7-T1: Normal annular contour. There is no uncovertebral joint arthropathy. There is no facet joint arthropathy. There is no neural foraminal stenosis. There is no spinal canal stenosis. MR/MR cervical spine wo/w con IMPRESSION: 1. Stable pattern and degree of intracranial and spinal cord white matter changes consistent with an underlying diagnosis of demyelination in the appropriate clinical setting. No evidence of disease progression. 2. Mild to moderate multilevel degenerative spondyloarthropathy of the cervical spine as described in detail above. Most notably, there are mild to moderate neural foraminal stenoses at C5-C6 and C6-C7. No spinal canal stenosis.
[2024-05-14] MEDS: gadobutroL 7.5 ML VIAL IVPUSH (17:15)
== END 2024-05-14 15:52 | disposition home or self-care (01) ==
LOC: HO.MRI 15:51
PROVIDERS: Visit Provider Nurse Practitioner Family
DX: G35 Multiple sclerosis (principal); M21.372 Foot drop, left foot; R29.898 Other symptoms and signs involving the musculoskeletal system; R25.1 Tremor, unspecified
CPT/HCPCS: 70553; 72156; A9585

== ENCOUNTER → 2024-11-03 09:13 | Outpatient (AMB) | payer OTHER, SELFPAY ==
--- NOTE | 2024-11-03 09:09 | MHC.OFFVIS ---
Vital Signs 11/03/24 09:11 Height 5 ft 6 in Weight 129 lb BMI 20.8 Intake Visit Reasons: 6 mo f/u Tub Rider Required: No Allergies amoxicillin Allergy (Severe, Verified 11/03/24 09:10) Sick azithromycin [Zithromax] Allergy (Severe, Verified 11/03/24 09:10) Sick ciprofloxacin Allergy (Severe, Verified 11/03/24 09:10) Sick levofloxacin Allergy (Severe, Verified 11/03/24 09:10) Sickness Sulfa (Sulfonamide Antibiotics) Allergy (Severe, Verified 11/03/24 09:10) sickness Erythromycin Allergy (Severe, Uncoded 04/11/24 18:43) sickness PCN Allergy (Severe, Uncoded 04/11/24 18:43) sickness Antibiotics Allergy (Intermediate, Uncoded 04/11/24 18:43) sickness HPI Comments Details: 63-yr-old female presents for f/u televideo visit for MS. Patient is accompanied by her , Jt. After the last visit, LLE workup was negative for DVT. Patient states the LLE swelling and coldness have improved since starting to use a new OTC LLE Saebeostep AFO about 5 months ago. However, in the last month, patient's states at her gait seems a bit different. He reports that hit seems that she needs to swing out the left hip in order to take the step- more so when walking quicker when wearing the AFO. Pt notes that she has had weight loss- approx 20 lbs in the past 6 months. Initially she was intentionally trying to lose weight- smaller portions, limiting sugar, and was limiting gluten, as she felt if she lost weight she would feel better. However, the weight loss has not helped that. Pt denies any signs of MS relapse. Pt reports she can feel easily fatigued. She does still wake up with her RUE tingling- does not have a splint for this. Denies RUE weakness. LUE tremor is stable. Her states her gait is a bit different- more so in the last month. Now needing to walk with a cane or hold onto the grocery cart when shopping. Now using a LLE Saebeostep, instead of her traditional LLE AFO, which is helping her gaoit, foot drop, and swelling some. She has started to No falls. No bladder changes. She is complaint w/ Aubagio- now receives through [facility]. 05/14/2024, MR/MR head/brain wo/w con IMPRESSION: 1. Stable pattern and degree of intracranial and spinal cord white matter changes consistent with an underlying diagnosis of demyelination in the appropriate clinical setting. No evidence of disease progression. 2. Mild to moderate multilevel degenerative spondyloarthropathy of the cervical spine as described in detail above. Most notably, there are mild to moderate neural foraminal stenoses at C5-C6 and C6-C7. No spinal canal stenosis. [facility] Medical History Asthma-COPD overlap syndrome Asthma Hypersensitivity pneumonitis Severe persistent asthma in adult without complication Family History Father Cancer HTN (hypertension) Mother Stroke Social History Alcohol intake: never Patient Tobacco Use Status: Never used Tobacco Physical Exam Vital Signs: BMI result Body Mass Index 20.8 Const General: cooperative and no acute distress Orientation/consciousness: patient oriented x3 Resp Effort & Inspection: normal respiratory effort and able to speak in complete sentences Neuro Other: No visible tremor Left foot drop Gait- stands ok, left high step w/o LLE AFO in place- no clearly visible left circumduction in gait. General: patient oriented x3 and CN's II-XI intact bilaterally Cognition (Neuro): normal cognition Psych Appearance: grossly normal Mental Status: mental status grossly normal Affect: normal affect Attitude: cooperative Thought process: Normal thought process present Telehealth Telehealth Telehealth Platform: [employer] Location of provider rendering services: practice address Location of patient: other ([place]) Patient Identification confirmed using: Name, : Yes Telehealth method: video Patient verbally consented to treatment: Yes Patient verbally consented to billing insurance company: Yes Patient informed of any privacy concerns related to visit: Yes Minutes spent on Phone/Video with Pt.: 25 Assessment & Plan Assessment & Plan (1) Multiple sclerosis: Code(s): G35 - Multiple sclerosis Category: Medical (2) LUE weakness: Code(s): R29.898 - Other symptoms and signs involving the musculoskeletal system Category: Medical (3) Tremor: Code(s): R25.1 - Tremor, unspecified Category: Medical (4) Left foot drop: Code(s): M21.372 - Foot drop, left foot Category: Medical (5) Left leg weakness: Code(s): R29.898 - Other symptoms and signs involving the musculoskeletal system Category: Medical (6) Gait difficulty: Code(s): R26.9 - Unspecified abnormalities of gait and mobility Category: Medical (7) Gait difficulty: Code(s): R26.9 - Unspecified abnormalities of gait and mobility Category: Medical (8) Right hand paresthesia: Code(s): R20.2 - Paresthesia of skin Category: Medical Plan Reviewed brain and cervical MRI w/wo contrast: Stable pattern of intracranial and spinal cord white matter changes. There is also mild to moderate multilevel degenerative spondyloarthropathy and [id number] neural foraminal stenosis at C5-C6 and C6-C7 without spinal canal stenosis. Continue Aubagio 14mg po daily- pt is now obtaining through [facility] pharmacy. Check updated CBC, CMP. General- ensure adequate daily food and fluid intake. Increase regular physical activity. For LLE weakness, foot drop, gait changes- start outpatient PT. may continue to use her LLE AFO. For RUE paresthesias- trial OTC carpal tunnel type splint at night while asleep. For fatigue- May take brief early day naps. Previous trials- Modafinil 100mg qam- ineffective for fatigue Will follow-up upon review of above and patient to follow-up in clinic in 6 months or sooner prn. Orders: Orders Complete Blood Count Auto Diff Today G35 - Multiple sclerosis, R53.1 - Weakness, R53.83 - Other fatigue Comprehensive Met. Panel Today G35 - Multiple sclerosis, R53.1 - Weakness, R53.83 - Other fatigue Coding Level of Care Code Tele Est Pt Level 4 (75174) Diagnoses Multiple sclerosis G35 LUE weakness R29.898 Tremor R25.1 Left foot drop M21.372 Left leg weakness R29.898 Gait difficulty R26.9 Right hand paresthesia R20.2
[2024-11-03 09:11] VITALS: BMI 20.8
--- OUTSIDE RECORDS SUMMARY | 2024-11-03 09:16 | XMS_ITS | Patient Health Record ---
Author Organization [facility] [place] [facility] Address [address] [place] [address] Care Team Providers Care Ladle Builder Name Role Phone Update, PCP Primary Care Provider Unavailabl e Allergies Allergen (clinical drug ingredient) Drug/Non Drug Allergy documented on EMR Reaction Allergy Type Onset Date Status sulfamethoxazole / trimethoprim Bactrim stomach upset Drug Allergy Active amoxicillin Amoxicillin vomiting Drug Allergy Act ac azithromycin Azithromycin vomiting Drug Allergy A ctive erythromycin Erythromycin vomiting Drug Allergy A ctive Penicillin vomiting Drug Allergy Active Substance with sulfonamide structure and antibacterial mechanism of action (substance) Sulfa Antibiotics vomiting Drug Allergy Active Reason For Referral No Information Medications Medication SIG (Take, Route, Fr equency, Duration) Notes Start Date End Date Status predniSONE 10 MG 1 tablet Orally Once a day Active DuoNeb Active ProAir HFA Active Perforomist 20 MCG/2ML 2 mL Inhalation Twice a day Active Budesonide ER 6 MG 1 capsule in the mor corky Orally Once a day Active Teriflunomide 14 MG 1 tablet Orally Once a day Active Problems Problem Type SNOMED Code ICD Code Onset Dates Problem Status W/U Status Risk Notes Problem Multiple sclerosis (92646007) Multiple sclerosis (G35) Active confirmed Problem Asthma (562615770) Asthma (J45.909) Active confirmed Problem Osteoporosis (34075461) Osteoporosis (M81.0) Active confirmed Plan Of Treatment No Information Medical (General) History Medical History History ICD Code Multiple sclerosis G35 Osteoporosis M81.0 Asthma J45.909
== END ==
PROVIDERS: Visit Provider Nurse Practitioner Family
DX: G35 Multiple sclerosis (principal); R29.898 Other symptoms and signs involving the musculoskeletal system; R25.1 Tremor, unspecified; M21.372 Foot drop, left foot; R26.9 Unspecified abnormalities of gait and mobility; R20.2 Paresthesia of skin
CPT/HCPCS: 99214